=== PATIENT | male | born 1980 | race Caucasian/White ===

== ENCOUNTER 2019-11-19 18:01 | Inpatient (IN) | payer SELFPAY ==
[2019-11-19] VITALS (41 sets, daily range): BP systolic 117–153; BP diastolic 78–114; PULSE 90–195; RESP 6–25; TEMP 36.7–36.8; O2SAT 91–99; BMI 19.3
--- NOTE | 2019-11-19 18:07 | CTR_ITS ---
PROCEDURE INFORMATION: Exam: CT Cervical Spine Without Contrast Exam date and time: 11/19/2019 6:09 PM Age: 39 years old Clinical indication: Injury or trauma; Initial encounter; Blunt trauma; Patient HX: Syncope with fall this p. M. PT C/O of RT sided headache with imbalance while standing; Additional info: Pain TECHNIQUE: Imaging protocol: Computed tomography images of the cervical spine without contrast. Total DLP: 362.03 mGy-cm Radiation optimization: All CT scans at this facility use at least one of these dose optimization techniques: automated exposure control; mA and/or kV adjustment per patient size (includes targeted exams where dose is matched to clinical indication); or iterative reconstruction. COMPARISON: No relevant prior studies available. FINDINGS: Vertebrae: No acute fracture. Normal alignment. Discs/Spinal canal/Neural foramina: No disc herniations. No spinal canal stenosis. No neural foraminal narrowing. Soft tissues: Unremarkable. Lungs: Mild apical scarring right greater than left. Lung apices are otherwise unremarkable. CT/CT cervical spin wo con* [id number] IMPRESSION: No acute findings. Radiation Dose CTDIVOL = (mGy): DLP = 362.03 (mGy-cm)
--- NOTE | 2019-11-19 18:07 | CTR_ITS ---
PROCEDURE INFORMATION: Exam: CT Head Without Contrast Exam date and time: 11/19/2019 6:09 PM Age: 39 years old Clinical indication: Injury or trauma; Patient HX: Syncope with fall this p. M. PT C/O of RT sided headache with imbalance while standing; Additional info: Chapa/ams TECHNIQUE: Imaging protocol: Computed tomography of the head without contrast. Total DLP: 416.42 mGy-cm Radiation optimization: All CT scans at this facility use at least one of these dose optimization techniques: automated exposure control; mA and/or kV adjustment per patient size (includes targeted exams where dose is matched to clinical indication); or iterative reconstruction. COMPARISON: No relevant prior studies available. FINDINGS: Brain: There is no acute hemorrhage, edema or mass effect. No midline shift. Ventricles: Normal. No ventriculomegaly. Bones/joints: Unremarkable. No acute fracture. Sinuses: There is patchy mucosal thickening in the sinuses. No air-fluid levels. Mastoid air cells: Visualized mastoid air cells are well aerated. Soft tissues: There is a right parietal scalp hematoma. CT/CT head wo con* [id number] IMPRESSION: 1. There is a right parietal scalp hematoma. 2. No acute intracranial abnormality. Radiation Dose CTDIVOL = (mGy): DLP = 416.42 (mGy-cm)
--- NOTE | 2019-11-19 18:08 | ECG_ITS ---
Measurements Intervals [place] Rate: 133 P: 80 WA: 159 QRS: 92 QRSD: 84 T: 53 QT: 292 QTc: 435 SINUS TACHYCARDIA BORDERLINE RIGHT AXIS DEVIATION [QRS AXIS > 90] POSSIBLE RIGHT VENTRICULAR CONDUCTION DELAY [RSR (QR) IN V1/V2] ABNORMAL RHYTHM ECG INTERPRETATION BASED ON A DEFAULT AGE OF 40 YEARS No previous ECG available for comparison Electronically Signed On 11-19-2019 18:35:49 CDT by Maureen Gagnon M.D. [id number]
--- NOTE | 2019-11-19 18:11 | W.ED.GENADLT ---
HPI - General Adult General: Chief complaint: General Medical Stated complaint: ETOH, FALL, W/D Time Seen by Provider: 11/19/19 18:02 History of Present Illness: HPI narrative: Dl is a 39-year-old male who comes in with report of fall. He was witnessed falling backward while trying to walk upstairs. Patient does not believe he passed out but likely just stumbled. Patient is currently withdrawing from alcohol. He states he drinks daily but he is not had anything to drink in the past 3 to 4 days. He denies any pain other than a headache. Patient states he does not not want to drink any longer and would be okay with something to help relax him. Other than that he denies any other complaints or injuries. EMS notes the patient was tachycardic in the 160s prior to arrival. Associated symptoms: Reports diaphoresis and headache(s); Deny chest pain, confusion, dyspnea, malaise, nausea, rash, palpitations, syncope or vomiting Review of Systems General: Reports: other (negative unless marked) Const: Reports: diaphoresis; Denies: fever, chills, body aches, fatigue or malaise Eyes: Denies: change in vision or blurry vision ENMT: Denies: throat pain, painful swallowing, hoarseness, ear pain, ear discharge, Change in hearing or nasal discharge Card: Denies: chest pain, palpitations, irregular heart rhythm, syncope, pre-syncope, shortness of breath on exertion or shortness of breath when lying down Resp: Denies: shortness of breath, productive cough, non-productive cough, wheezing, coughing up blood or chest congestion GI: Denies: abdominal pain, nausea, vomiting, vomiting blood, coffee grounds in vomit, diarrhea, constipation, cramping, blood in stool or black tarry stool : Denies: flank pain, difficulty urinating, painful urination, urinary frequency, urinary urgency, decreased urine ouput, urinary incontinence or blood in urine Musc: Denies: neck pain, back pain, extremity pain, extremity swelling, joint pain, joint swelling, joint warmth or joint stiffness Skin/Breast: Denies: rash, skin tenderness or yellow skin Neuro: Reports: headache; Denies: numbness in extremities, weakness in extremities, changes in sensation, lack of coordination, difficulty walking, dizziness, vertigo or confusion Endo: Denies: excessive thirst, tired all the time, cold intolerance, excessive sweating, flushing or hot flashes Osiel/Lymph: Denies: easy bruising, easy bleeding, petechiae or enlarged lymph nodes All/Imm: Denies: hives, throat swelling, tongue swelling, facial swelling or acute wheezing PFSH ED PFSH: Medical History Alcoholism Mitral valve prolapse Spontaneous pneumothorax Social History Smoking and tobacco status: current some day smoker Physical Exam Const: COMMON NORMALS: no apparent distress, oriented x3, no limitations, healthy appearing and well nourished EXAM LIMITATIONS: no altered mental status GENERAL APPEARANCE: cooperative, well kempt and well developed ORIENTATION/CONSCIOUSNESS: Yes awake HENMT: COMMON NORMALS: normocephalic, head/scalp atraumatic, hearing grossly normal bilaterally, external ears normal, EAC's normal, external nose normal and moist oral mucous membranes HEAD & SCALP: normal to inspection, normocephalic and atraumatic FACE & SINUS: normal facial exam and face symmetric NOSE: external nose normal and nares normal EXTERNAL EAR: Yes external ears normal EXTERNAL AUDITORY CANAL: EAC's normal MOUTH: oral and palatal mucosa normal and tongue normal Eye: COMMON NORMALS: PERRL, EOMs intact bilaterally, conjunctivae normal and no scleral icterus GENERAL EYE: normal appearance of both eyes and normal light reflex CONJUNCTIVA: Yes conjunctivae normal SCLERA: sclerae normal CORNEA: Yes corneas normal PUPIL: Yes PERRL DIRECT OPHTHALMOSCOPY: Yes normal light reflex Neck/C-Spine: COMMON NORMALS: full ROM, no lymphadenopathy, supple, no meningeal signs and no JVD GENERAL: Yes normal visual inspection and Yes trachea midline CERVICAL SPINE: Yes cervical ROM normal Chest: COMMONS NORMALS: inspection of chest normal and palpation of chest normal Resp: COMMON NORMALS: normal respiratory effort, no retractions, no use of accessory muscles and clear to auscultation bilaterally EFFORT & INSPECTION: Yes able to speak in complete sentences AUSCULTATION: clear to auscultation bilaterally Cardio: COMMON NORMALS: no JVD, regular rhythm, S1 normal heart sound, S2 normal heart sound, no gallops, no clicks, no murmurs and no rub JUGULAR VENOUS DISTENTION: no JVD RATE: tachycardic RHYTHM: regular rhythm HEART SOUNDS: S1 normal and S2 normal GI: COMMON NORMALS: soft to palpation, non-tender, no hepatosplenomegaly and no masses INSPECTION: Yes normal to inspection PALPATION: Yes soft and Yes no hepatosplenomegaly : COMMON NORMALS: Yes no CVA tenderness BLADDER/KIDNEY EXAM: Yes no CVA tenderness Back/Pelvis: COMMON NORMALS: no CVA tenderness, thoracic and lumbar spine normal to inspection, no thoracic nor lumbar tenderness and thoraco-lumbar ROM normal Extremity: COMMON NORMALS: normal to inspection, full ROM, normal capillary refill, no joint enlargement, no clubbing, cyanosis or edema and no calf tenderness Neuro: COMMON NORMALS: oriented x3, CN's II-XII intact bilaterally, moves all extremities, no focal motor deficits and no sensory deficits noted MENINGEAL SIGNS: Yes no meningeal signs Psych: COMMON NORMALS: mental status grossly normal, thought process normal, cooperative, affect normal, speech normal and activity/motor behavior normal APPEARANCE: Yes well kempt SPEECH: Yes normal speech THOUGHT PROCESS: normal thought process Skin: COMMON NORMALS: no rashes or lesions noted, skin turgor normal, no jaundice, no petechiae and no mottling GENERAL SKIN EXAM: no rashes or lesions noted and turgor normal Course ED course: 1829 -patient is refusing chest x-ray. I have had a discussion with him about the importance of this but despite this he states is not hurting in his chest and refuses the x-ray. Vital Signs: Vital signs: Vital Signs Temperature 98.3 F 11/19/19 18:02 Pulse Rate 121 H 11/19/19 19:05 Respiratory Rate 22 H 11/19/19 19:05 Blood Pressure 145/99 11/19/19 19:05 Pulse Oximetry 98 11/19/19 19:05 MDM - General Adult MDM Narrative: Medical decision making narrative: Arrival -Dl is a 39-year-old male who comes in after a fall hitting his head. It is unclear whether he is just amnestic to the event from a concussion with loss of consciousness or he had a seizure. No seizure activity was described by bystanders. Patient states he is never had a seizure before when he tried to detox. He is mildly tremulous. He denies any hallucinations. Patient states that he would like to go home but would like his symptoms to be better before he is discharged. Differential is long including syncope, delirium tremens, seizure disorder among many others. We will move forward with work-up for these and other possibilities on his differential. Admission - the patient appears to have alcohol withdrawal seizures, delirium tremens. The case was reviewed in full with Dr. Levy, he agrees to admission. Lab Data: Attestation: I reviewed the patient's lab results. Labs: Lab Results 11/19/19 11/19/19 11/19/19 Range/Units 17:50 17:50 17:50 WBC 9.8 (4.0-10.0) 10^3/ uL RBC 5.30 (4.1-5.3) 10^6/u L Hgb 16.2 (11.7-16.6) g/dL Hct 49.9 (42.0-52.0) % MCV 94.2 H (80-94) fL MCH 30.6 (28.0-34.0) pg MCHC 32.5 (30.0-36.0) g/dL RDW 12.4 (12.1-15.1) % Plt Count 143 (130-400) 10^3/c mm MPV 10.0 (7.4-10.4) fL Neut % (Auto) 45.2 % Lymph % (Auto) 42.1 % [place] % (Auto) 10.2 % Eos % (Auto) 1.7 % Baso % (Auto) 0.5 % Neut # (Auto) 4.4 (1.8-7.7) 10^3/u L Lymph # (Auto) 4.1 (0.8-4.8) 10^3/u L [place] # (Auto) 1.0 H (0.2-0.9) 10^3/u L Eos # (Auto) 0.2 (0.0-0.8) 10^3/u L Baso # (Auto) 0.1 (0.0-0.1) 10^3/u L Nucleated RBC % (a uto) 0 % Nucleated RBCs # 0.0 /100WBC PT 13.60 H (10.5-13.3) SECO NDS INR 1.01 (0.8-1.2) Sodium 135 L (136-145) mmol/L Potassium 3.3 L (3.5-5.1) mmol/L Chloride 88 L (98-107) mmol/L Carbon Dioxide 10 L (22-29) mmol/L Anion Gap 40.3 H (5-19) BUN 15 (6-20) mg/dL Creatinine 1.6 H (0.7-1.2) mg/dL GFR Calculation 48.9 L (90-130) mL/min Glucose 187 H (65-115) mg/dL Calculated Osmolal ity 281 L (285-295) mOsm/k g Lactic Acid (0.5-2.2) mmol/L Lactic Acid (Sepsi s) (0.5-2.2) mmol/L Calcium 10.0 (8.5-10.5) mg/dL Total Bilirubin 0.7 (0.15-1.2) mg/dL AST 175 H (0-40) U/L ALT 130 H (0-41) U/L Alkaline Phosphata se 115 (40-130) IU/L Creatine Kinase 607 H* (39-308) U/L Troponin T Baselin e (0-15) ng/mL Total Protein 8.9 H (6.6-8.7) g/dL Albumin 5.2 (3.5-5.2) g/dL Globulin 3.7 (1.3-4.6) g/dL TSH 7.95 H (0.27-4.20) uIU/ mL Urine Opiates Scre en (Negative) ng/mL Ur Barbiturates Sc reen (Negative) ng/mL Ur Phencyclidine S crn (Negative) ng/mL Ur Amphetamines Sc reen (Negative) ng/mL U Benzodiazepines Scrn (Negative) ng/mL Urine Cocaine Scre en (Negative) ng/mL U Marijuana (THC) Screen (Negative) ng/mL Ethyl Alcohol < 10 (0-10) mg/dL 11/19/19 11/19/19 11/19/19 Range/Units 17:50 18:18 19:02 WBC (4.0-10.0) 10^3/ uL RBC (4.1-5.3) 10^6/u L Hgb (11.7-16.6) g/dL Hct (42.0-52.0) % MCV (80-94) fL MCH (28.0-34.0) pg MCHC (30.0-36.0) g/dL RDW (12.1-15.1) % Plt Count (130-400) 10^3/c mm MPV (7.4-10.4) fL Neut % (Auto) % Lymph % (Auto) % [place] % (Auto) % Eos % (Auto) % Baso % (Auto) % Neut # (Auto) (1.8-7.7) 10^3/u L Lymph # (Auto) (0.8-4.8) 10^3/u L [place] # (Auto) (0.2-0.9) 10^3/u L Eos # (Auto) (0.0-0.8) 10^3/u L Baso # (Auto) (0.0-0.1) 10^3/u L Nucleated RBC % (a uto) % Nucleated RBCs # /100WBC PT (10.5-13.3) SECO NDS INR (0.8-1.2) Sodium (136-145) mmol/L Potassium (3.5-5.1) mmol/L Chloride (98-107) mmol/L Carbon Dioxide (22-29) mmol/L Anion Gap (5-19) BUN (6-20) mg/dL Creatinine (0.7-1.2) mg/dL GFR Calculation (90-130) mL/min Glucose (65-115) mg/dL Calculated Osmolal ity (285-295) mOsm/k g Lactic Acid 10.5 H* (0.5-2.2) mmol/L Lactic Acid (Sepsi s) (0.5-2.2) mmol/L Calcium (8.5-10.5) mg/dL Total Bilirubin (0.15-1.2) mg/dL AST (0-40) U/L ALT (0-41) U/L Alkaline Phosphata se (40-130) IU/L Creatine Kinase (39-308) U/L Troponin T Baselin e 10 (0-15) ng/mL Total Protein (6.6-8.7) g/dL Albumin (3.5-5.2) g/dL Globulin (1.3-4.6) g/dL TSH (0.27-4.20) uIU/ mL Urine Opiates Scre en Negative (Negative) ng/mL Ur Barbiturates Sc reen Negative (Negative) ng/mL Ur Phencyclidine S crn Negative (Negative) ng/mL Ur Amphetamines Sc reen Negative (Negative) ng/mL U Benzodiazepines Scrn Negative (Negative) ng/mL Urine Cocaine Scre en Negative (Negative) ng/mL U Marijuana (THC) Screen Negative (Negative) ng/mL Ethyl Alcohol (0-10) mg/dL 11/19/19 Range/Units 19:38 WBC (4.0-10.0) 10^3/ uL RBC (4.1-5.3) 10^6/u L Hgb (11.7-16.6) g/dL Hct (42.0-52.0) % MCV (80-94) fL MCH (28.0-34.0) pg MCHC (30.0-36.0) g/dL RDW (12.1-15.1) % Plt Count (130-400) 10^3/c mm MPV (7.4-10.4) fL Neut % (Auto) % Lymph % (Auto) % [place] % (Auto) % Eos % (Auto) % Baso % (Auto) % Neut # (Auto) (1.8-7.7) 10^3/u L Lymph # (Auto) (0.8-4.8) 10^3/u L [place] # (Auto) (0.2-0.9) 10^3/u L Eos # (Auto) (0.0-0.8) 10^3/u L Baso # (Auto) (0.0-0.1) 10^3/u L Nucleated RBC % (a uto) % Nucleated RBCs # /100WBC PT (10.5-13.3) SECO NDS INR (0.8-1.2) Sodium (136-145) mmol/L Potassium (3.5-5.1) mmol/L Chloride (98-107) mmol/L Carbon Dioxide (22-29) mmol/L Anion Gap (5-19) BUN (6-20) mg/dL Creatinine (0.7-1.2) mg/dL GFR Calculation (90-130) mL/min Glucose (65-115) mg/dL Calculated Osmolal ity (285-295) mOsm/k g Lactic Acid (0.5-2.2) mmol/L Lactic Acid (Sepsi s) 1.9 (0.5-2.2) mmol/L Calcium (8.5-10.5) mg/dL Total Bilirubin (0.15-1.2) mg/dL AST (0-40) U/L ALT (0-41) U/L Alkaline Phosphata se (40-130) IU/L Creatine Kinase (39-308) U/L Troponin T Baselin e (0-15) ng/mL Total Protein (6.6-8.7) g/dL Albumin (3.5-5.2) g/dL Globulin (1.3-4.6) g/dL TSH (0.27-4.20) uIU/ mL Urine Opiates Scre en (Negative) ng/mL Ur Barbiturates Sc reen (Negative) ng/mL Ur Phencyclidine S crn (Negative) ng/mL Ur Amphetamines Sc reen (Negative) ng/mL U Benzodiazepines Scrn (Negative) ng/mL Urine Cocaine Scre en (Negative) ng/mL U Marijuana (THC) Screen (Negative) ng/mL Ethyl Alcohol (0-10) mg/dL Imaging Data^: CT Head: Radiologist's impression: [place] [address] CT Scan Report Signed Patient: Dl Lyman Unit #: [id number] : 1980 Age/Sex: 39 / M ADM Date: 11/19/19 Loc: ER Room/Bed: Attending Dr: Ordering Provider/Ordering MD: Carol Felix DO Date of Service: 11/19/19 Procedure(s): CT head wo con* [id number] Accession Number(s): [id number] Report Number: [id number] PROCEDURE INFORMATION: Exam: CT Head Without Contrast Exam date and time: 11/19/2019 6:09 PM Age: 39 years old Clinical indication: Injury or trauma; Patient HX: Syncope with fall this p. M. PT C/O of RT sided headache with imbalance while standing; Additional info: Chapa/ams TECHNIQUE: Imaging protocol: Computed tomography of the head without contrast. Total DLP: 416.42 mGy-cm Radiation optimization: All CT scans at this facility use at least one of these dose optimization techniques: automated exposure control; mA and/or kV adjustment per patient size (includes targeted exams where dose is matched to clinical indication); or iterative reconstruction. COMPARISON: No relevant prior studies available. FINDINGS: Brain: There is no acute hemorrhage, edema or mass effect. No midline shift. Ventricles: Normal. No ventriculomegaly. Bones/joints: Unremarkable. No acute fracture. Sinuses: There is patchy mucosal thickening in the sinuses. No air-fluid levels. Mastoid air cells: Visualized mastoid air cells are well aerated. Soft tissues: There is a right parietal scalp hematoma. CT/CT head wo con* [id number] IMPRESSION: 1. There is a right parietal scalp hematoma. 2. No acute intracranial abnormality. Radiation Dose CTDIVOL = (mGy): DLP = 416.42 (mGy-cm) Dictated By: Erin Retana Signed By: Erin Retana Signed Date/Time: 11/19/191913 DD/ 12 CT Cervical Spine: Radiologist's impression: [place] [address] CT Scan Report Signed Patient: Dl Lyman Unit #: [id number] : 1980 Age/Sex: 39 / M ADM Date: 11/19/19 Loc: ER Room/Bed: Attending Dr: Ordering Provider/Ordering MD: Carol Felix DO Date of Service: 11/19/19 Procedure(s): CT cervical spin wo con* [id number] Accession Number(s): [id number] Report Number: [id number] PROCEDURE INFORMATION: Exam: CT Cervical Spine Without Contrast Exam date and time: 11/19/2019 6:09 PM Age: 39 years old Clinical indication: Injury or trauma; Initial encounter; Blunt trauma; Patient HX: Syncope with fall this p. M. PT C/O of RT sided headache with imbalance while standing; Additional info: Pain TECHNIQUE: Imaging protocol: Computed tomography images of the cervical spine without contrast. Total DLP: 362.03 mGy-cm Radiation optimization: All CT scans at this facility use at least one of these dose optimization techniques: automated exposure control; mA and/or kV adjustment per patient size (includes targeted exams where dose is matched to clinical indication); or iterative reconstruction. COMPARISON: No relevant prior studies available. FINDINGS: Vertebrae: No acute fracture. Normal alignment. Discs/Spinal canal/Neural foramina: No disc herniations. No spinal canal stenosis. No neural foraminal narrowing. Soft tissues: Unremarkable. Lungs: Mild apical scarring right greater than left. Lung apices are otherwise unremarkable. CT/CT cervical spin wo con* [id number] IMPRESSION: No acute findings. Radiation Dose CTDIVOL = (mGy): DLP = 362.03 (mGy-cm) Dictated By: Erin Retana Signed By: Erin Retana Signed Date/Time: 11/19/191915 DD/ 14 EKG Data^: EKG 1: Attestation: I personally reviewed and interpreted this EKG as follows: EKG interpretation date: 11/19/19 EKG interpretation time: 18:18 Interpretation: Sinus tachycardia at 133, incomplete right bundle branch block, nonspecific ST and T wave changes. Computer generated interpretation: Cervical Spine CT 11/19/19 18:07 IMPRESSION: No acute findings. Radiation Dose CTDIVOL = (mGy): DLP = 362.03 (mGy-cm) Head CT 11/19/19 18:07 IMPRESSION: 1. There is a right parietal scalp hematoma. 2. No acute intracranial abnormality. 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
[2019-11-19] MEDS: ondansetron 2 mg/ML SDV 2 mL 4 MG IVP (18:20)
[2019-11-19] MEDS: LORazepam 2 mg/mL INJ 1 mL 1 MG IVP ×2 (18:20→19:19)
[2019-11-19] MEDS: sodium chloride 0.9% 1,000 ML 999 ML IV ×2 (18:20→19:19)
[2019-11-19 18:27] LABS: Basophils # 0.1 10^3/uL (0.0-0.1); Basophils % 0.5 %; Eosinophils # 0.2 10^3/uL (0.0-0.8); Eosinophils % 1.7 %; Hematocrit 49.9 % (42.0-52.0); Hemoglobin 16.2 g/dL (11.7-16.6); Lymphocytes # 4.1 10^3/uL (0.8-4.8); Lymphocytes % 42.1 %; Mean Corpuscular HGB Conc 32.5 g/dL (30.0-36.0); Mean Corpuscular Hemoglobin 30.6 pg (28.0-34.0); Mean Corpuscular Volume 94.2 fL (80-94); Monocytes % 10.2 %; Neutrophils # 4.4 10^3/uL (1.8-7.7); Neutrophils % 45.2 %; Nucleated Red Blood Cells % 0 %; Platelet Count 143 10^3/cmm (130-400); Red Cell Distribution Width 12.4 % (12.1-15.1); White Blood Count 9.8 10^3/uL (4.0-10.0)
[2019-11-19 18:41] LABS: INR 1.01 (0.8-1.2)
[2019-11-19 18:57] LABS: Troponin(5th) Baseline 10 ng/mL (0-15)
[2019-11-19 19:05] LABS: Alanine Aminotransferase 130 U/L (0-41); Albumin Level 5.2 g/dL (3.5-5.2); Alkaline Phosphatase 115 IU/L (40-130); Anion Gap 40.3 (5-19); Aspartate Amino Transferase 175 U/L (0-40); Blood Urea Nitrogen 15 mg/dL (6-20); Carbon Dioxide 10 mmol/L (22-29); Chloride 88 mmol/L (98-107); Globulin 3.7 g/dL (1.3-4.6); Glomerular Filtration Rate 48.9 mL/min (90-130); Glucose 187 mg/dL (65-115); Osmolality Calculated 281 mOsm/kg (285-295); Potassium 3.3 mmol/L (3.5-5.1); Sodium 135 mmol/L (136-145); Thyroid Stimulating Hormone 7.95 uIU/mL (0.27-4.20); Total Bilirubin 0.7 mg/dL (0.15-1.2); Total Protein 8.9 g/dL (6.6-8.7)
[2019-11-19 19:06] LABS: Lactic Sepsis W/Reflex 10.5 mmol/L (0.5-2.2)
[2019-11-19 19:09] LABS: Alcohol Level < 10 mg/dL (0-10)
[2019-11-19 19:10] LABS: Creatine Phosphokinase 607 U/L (39-308)
[2019-11-19 19:22] LABS: Reflex Lactate Order REFLEX LACTIC ORDERD
[2019-11-19 20:05] LABS: Amphetamines Screen Urine Negative (Negative); Barbiturates Screen Urine Negative (Negative); Benzodiazepines Screen Urine Negative (Negative); Cocaine Screen Urine Negative (Negative); Opiate Screen Urine Negative (Negative); PCP Screen Urine Negative (Negative); THC Screen Urine Negative (Negative)
[2019-11-19 20:05] LABS: Lactic Acid level (Lactate) 1.9 mmol/L (0.5-2.2)
--- NOTE | 2019-11-19 20:08 | ECG_ITS ---
Measurements Intervals [place] Rate: 102 P: 76 DE: 165 QRS: 87 QRSD: 86 T: 62 QT: 348 QTc: 454 SINUS TACHYCARDIA ABNORMAL RHYTHM ECG Compared to ECG 11/19/2019 18:18:35 No significant changes Electronically Signed On 11-20-2019 7:49:04 CDT by Dimitry Lindsay M.D. [id number]
[2019-11-19] MEDS: folic acid 1 MG, multivitamin inj 10 ML, thiamine 100 MG in sodium chloride 0.9% 1,000 ML 252.8 MG IV (20:25)
[2019-11-19] MEDS: potassium chloride oral liq 20 mEq/15 mL UDC 40 MEQ PO (20:26)
[2019-11-19 20:29] LABS: Magnesium 2.8 mg/dL (1.7-2.3)
[2019-11-19 20:32] LABS: Troponin 5 2HR 18.32 ng/mL (0-15); Troponin 5 2HR Delta 8.32 ABS# (0-10)
[2019-11-19 20:38] LABS: Bilirubin Urine Neg (NEGATIVE); Blood Urine 2+ (Negative); Glucose Urine UA Norm (Normal); Ketones Urine 1+ (Negative); Leukocyte Esterase Urine Negative (Negative); Nitrate Urine Negative (Negative); Protein Urine Neg (Negative); RBC Urine 0-4 /hpf (0-2); Squamous Epithelial Cell Urine 0-4 (0-5); Urine Appearance Clear (CLEAR); Urine Color Yellow (Yellow); Urobilinogen Urine Norm (Negative); WBC Urine 0-4 /hpf (0-5); pH Urine 5 (5-7)
--- NOTE | 2019-11-19 20:38 | PM.HP ---
Providers/Chief Complaint Admitting Physician: Maureen Levy MD Chief Complaint: ETOH, FALL, W/D History of Present Illness Dl Lyman is a 39 year old male who endorses history of polysubstance abuse, heroin abuse, active smoker, alcohol abuse came in after experiencing worsening symptom of alcohol withdrawal. Patient is stating that he drinks 15 beers every day. [facility] [employer] [employer] until layover, he managed to work while drinking 13 to 14 cans of beer every day. He decided to cut back on his beer. His last drink was 4 days ago, patient is stating that he quit heroin cold and he is going to do the same for his alcohol addiction. He started experiencing nausea and vomiting 3 days ago, he was extremely tremulous, he confined himself to his bed hoping he will improve, gradually his symptoms got worse, he was not able to sleep for last 72 hours, this morning when he got up, he went out in his porch and had 1 syncopal event, kids in the yard called 911, when he woke up he was extremely confused and had no recall of events. He thinks he caught up on his sleep. Patient is endorsing severe alcohol withdrawals in the past requiring intubations. He smoking 1 pack/day. His last proper meal was about 4 days ago. Diagnostics in ER revealed active withdrawal symptoms, sinus tachycardia, hypertensive, patient saturating well on room air, CIWA score greater than 12 Hypokalemia, abnormal TSH, lactic acid 10.5, metabolic acidosis, CK 607, free T4 normal Review of Systems Const: Reports: chills, body aches, change in appetite, fatigue, malaise, diaphoresis and change in sleep pattern; Denies: fever Eyes: Reports: eye redness and dry eyes; Denies: change in vision, eye discomfort or eye discharge ENMT: Denies: throat pain or painful swallowing Card: Denies: chest pain or edema Resp: Denies: shortness of breath or productive cough GI: Reports: abdominal pain; Denies: nausea : Denies: flank pain Musc: Denies: neck pain Skin/Breast: Denies: rash or itching Neuro: Reports: headache, seizure-like activity and involuntary movements Psych: Reports: anxiety, sleeping less, change in appetite, paranoia and tactile hallucinations; Denies: suicidal ideation or homicidal ideation Endo: Denies: excessive urination Osiel/Lymph: Denies: easy bruising All/Imm: Denies: hives Medications/Allergies Home Medications Medication Instructions Recorded Confirmed Last Taken Type No Known Home Medications 11/19/19 11/19/19 Unknown History Allergies Allergy/AdvReac Type Severity Reaction Status Date / Time No Known Allergies Allergy Verified 11/19/19 18:09 PFSH Acute PFSH: Medical History Alcoholism Heroin addiction Mitral valve prolapse Spontaneous pneumothorax Surgical History H/O chest tube placement Spontaneous pneumothorax Family History (Updated 11/19/19 @ 20:47 by Maureen Levy MD) Denies family history of Diabetes Clotting disorder Dementia Chronic kidney disease (CKD) Social History (Updated 11/19/19 @ 20:48 by Maureen Levy MD) Smoking and tobacco status: heavy tobacco smoker cigarettes [ Other cigarette details: 1 pack/day for last 20 years ] Alcohol intake: current Alcohol type: beer Alcohol use comment: 15 cans every day Substance/Drug Use: former Date of last use: Heroin addiction in the past Household members: family Housing: House Marital status: Vitals/I&O/Wt Last Vital Signs Temp 98.3 F 11/19/19 18:02 Pulse 121 H 11/19/19 19:05 Resp 22 H 11/19/19 19:05 BP 145/99 11/19/19 19:05 Pulse Ox 98 11/19/19 19:05 11/19/19 11/19/19 11/19/19 06:59 14:59 22:59 Intake Total 982.35 / 982.35 Balance 982.35 / 982.35 Weight last 48 hrs Weight 61.235 kg Physical Exam Narrative: EXAM NARRATIVE: Young male very tremulous undergoing withdrawal from alcohol Sinus tachycardia heart rate 120 Hypertensive systolic blood pressure 160?, diastolic 110 CIWA score 12 Unkempt appearance, poor hygiene, inappropriate grooming, foul-smelling clothing Dehydrated appearance S1, S2 sinus tachycardia Lungs clear to auscultation Abdomen soft nontender nondistended, chest tube surgical scars right axillary area Patient is very irritable Tremulous, coarse tremors Hyperemic conjunctivo-bilateral without active discharge or eye pain, pupils are sluggish to respond to light bilaterally, dilated Data : 11/19/19 17:50 11/19/19 17:50 A&P Assessment and plan (1) Alcohol withdrawal syndrome: Status: Acute Qualifiers: Complication of substance-induced condition: with perceptual disturbance Qualified Code(s): F10.232 - Alcohol dependence with withdrawal with perceptual disturbance (2) Alcoholism: Status: Acute (3) Syncope: Status: Acute Additional A&P Information Syncopal event most likely due to seizure from alcohol withdrawal Alcohol level nondetectable, CT cervical spine did not show acute findings, right parietal scalp hematoma, no active bleeding Patient is able to protect airways, EKG shows sinus tachycardia, Patient has a history of mitral valve prolapse and spontaneous pneumothorax Patient has refused chest x-ray, however currently saturating well on room air no active respiratory distress bilateral breath sounds present Alcohol withdrawal Admit to ICU, high risk for intubation CIWA score greater than 12 Thiamine, folic acid Metabolic acidosis due to lactic acidemia This seems secondary to extreme dehydration due to recurrent emesis I would also keep seizures in my differentials because of recent syncopal event, patient has not been able to sleep well in last 72 hours Continue fluids after banana bag No active confabulation or nystagmus noted Hypokalemia due to emesis: Repleted Subclinical hypothyroidism: Normal T4 no active symptom Acute kidney injury secondary to dehydration: Anticipating improvement with fluid resuscitation Mild abnormal creatinine kinase, urine color is not dark, I do not think he is suffering from rhabdomyolysis this could be very well secondary to alcohol withdrawal Polysubstance abuse I will check HIV and hepatitis panel Full code N.p.o. at the moment as he will be considered high risk for intubation DVT prophylaxis: Heparin Attestations Medical Necessity Statement*: High risk for intubation, alcohol withdrawal, currently needs ICU monitoring, anticipating stay to cross more than 2 midnights Time Spent in Patient Care: 40 Coding Level of Care Code Acute Rolling Attendant for Chg Fwd Diagnoses Alcohol withdrawal syndrome F10.232 Complication of substance-induced condition: with perceptual disturbance Alcoholism F10.20 Syncope R55
[2019-11-19 20:39] LABS: Add Urine Culture? No; Bacteria Urine TRACE
[2019-11-19 21:33] LABS: Magnesium 2.7 mg/dL (1.7-2.3)
[2019-11-19] MEDS: chlordiazePOXIDE 25 mg Capsule 50 MG PO (22:13)
[2019-11-19] MEDS: LORazepam 2 mg/mL INJ 1 mL IVP (22:17)
[2019-11-19] MEDS: heparin 5,000 unit/mL INJ 1 mL 5000 UNIT SUBCUT (22:17)
[2019-11-19] MEDS: acetaminophen 325 mg Tablet 650 MG PO (22:18)
[2019-11-19] MEDS: D5-NS 0.45% + KCL 20 mEq 20 MEQ/1,000 ML BAG 150 MEQ IV (22:18)
[2019-11-20] VITALS (27 sets, daily range): BP systolic 106–161; BP diastolic 70–91; PULSE 0–105; RESP 4–23; TEMP 36.7–37.1; O2SAT 91–100
--- NOTE | 2019-11-20 00:08 | ECG_ITS ---
Measurements Intervals [place] Rate: 85 P: 78 TN: 183 QRS: 86 QRSD: 91 T: 56 QT: 380 QTc: 453 SINUS RHYTHM POSSIBLE RIGHT VENTRICULAR CONDUCTION DELAY [RSR (QR) IN V1/V2] Compared to ECG 11/19/2019 18:18:35 Sinus tachycardia no longer present Electronically Signed On 11-20-2019 7:49:40 CDT by Dimitry Lindsay M.D. [email or web address]
[2019-11-20] MEDS: LORazepam 2 mg/mL INJ 1 mL IVP (03:00)
[2019-11-20 04:57] LABS: Basophils % 0.4 %; Eosinophils # 0.2 10^3/uL (0.0-0.8); Eosinophils % 3.9 %; Hematocrit 42.4 % (42.0-52.0); Hemoglobin 14.2 g/dL (11.7-16.6); Lymphocytes # 1.3 10^3/uL (0.8-4.8); Lymphocytes % 28.4 %; Mean Corpuscular HGB Conc 33.5 g/dL (30.0-36.0); Mean Corpuscular Hemoglobin 31.2 pg (28.0-34.0); Mean Corpuscular Volume 93.2 fL (80-94); Mean Platelet Volume 10.3 fL (7.4-10.4); Monocytes # 0.5 10^3/uL (0.2-0.9); Monocytes % 10.1 %; Neutrophils # 2.6 10^3/uL (1.8-7.7); Nucleated Red Blood Cells % 0 %; Platelet Count 108 10^3/cmm (130-400); Red Blood Count 4.55 10^6/uL (4.1-5.3); Red Cell Distribution Width 12.5 % (12.1-15.1); White Blood Count 4.6 10^3/uL (4.0-10.0)
[2019-11-20 05:26] LABS: Alanine Aminotransferase 93 U/L (0-41); Albumin Level 3.8 g/dL (3.5-5.2); Alkaline Phosphatase 72 IU/L (40-130); Anion Gap 15.3 (5-19); Aspartate Amino Transferase 148 U/L (0-40); Blood Urea Nitrogen 7 mg/dL (6-20); Calcium 8.2 mg/dL (8.5-10.5); Carbon Dioxide 22 mmol/L (22-29); Chloride 102 mmol/L (98-107); Creatinine Clr Calc Pharmacy 108.5537; Globulin 2.7 g/dL (1.3-4.6); Glucose 100 mg/dL (65-115); Osmolality Calculated 278 mOsm/kg (285-295); Potassium 3.3 mmol/L (3.5-5.1); Sodium 136 mmol/L (136-145); Total Bilirubin 0.6 mg/dL (0.15-1.2); Total Protein 6.5 g/dL (6.6-8.7)
[2019-11-20] MEDS: D5-NS 0.45% + KCL 20 mEq 20 MEQ/1,000 ML BAG 150 MEQ IV ×3 (06:09→18:10)
[2019-11-20] MEDS: heparin 5,000 unit/mL INJ 1 mL 5000 UNIT SUBCUT ×3 (06:12→20:37)
--- NOTE | 2019-11-20 07:00 | XR_ITS ---
WS: [id number] CHEST XRAY TECHNIQUE: Portable chest. CLINICAL INFORMATION: History of pneumothorax COMPARISON: None. FINDINGS: Heart: Normal cardiac silhouette. Lungs: Hyperinflation. No acute pulmonary infiltrates. No focal pneumonia. Bones: Normal visualized bony structures. XR/XR chest 1V portable [id number] IMPRESSION: Hyperinflation. No acute chest findings.
[2019-11-20 07:12] LABS: Hepatitis B Surface Antigen. Non-Reactive (Nonreactive)
[2019-11-20 07:26] LABS: Hepatitis C Virus Antibody Non-Reactive (Nonreactive)
[2019-11-20] MEDS: thiamine 100 mg Tablet PO (08:21)
[2019-11-20] MEDS: multivitamin therapeutic Tablet 1 TAB PO (08:21)
[2019-11-20] MEDS: nicotine 21 mg Patch 1 PATCH TRANSDERMA (08:21)
[2019-11-20] MEDS: folic acid 1 mg Tablet PO (08:21)
--- NOTE | 2019-11-20 09:55 | PM.PN ---
Subjective Subjective: Interval history: History and physical was reviewed in detail. Patient reports he feels somewhat better than yesterday. He believes he can eat some. Still somewhat shaky. Last Ativan dose around 3 AM. Medications: Reviewed: Yes Vitals/I&O/Wt Last Vital Signs Temp 98.7 F 11/20/19 08:00 Pulse 97 11/20/19 08:42 Resp 23 H 11/20/19 08:00 BP 134/87 11/20/19 08:00 Pulse Ox 95 11/20/19 08:42 11/19/19 11/20/19 11/20/19 22:59 06:59 14:59 Intake Total 982.35 / 982.35 1000 / 1982.35 Output Total 1350 / 1350 0 / 1350 Balance -367.65 / -367.65 1000 / 632.35 Weight last 48 hrs Weight 61.235 kg Physical Exam Narrative: EXAM NARRATIVE: General exam demonstrates a white male, conversant, with slight tremor. Cardiovascular regular rate and rhythm without murmur Lungs faint expiratory wheeze Abdomen is soft with positive bowel sounds Extremities no cyanosis clubbing or edema Data : 11/20/19 04:15 11/20/19 04:15 A&P Assessment and plan (1) Alcohol withdrawal syndrome: He seems to be making some improvement. He denies any suicidal or homicidal ideation Continue [facility] protocol Continue multivitamin, thiamine Status: Acute Qualifiers: Complication of substance-induced condition: with perceptual disturbance Qualified Code(s): F10.232 - Alcohol dependence with withdrawal with perceptual disturbance (2) Alcoholism: Counseled Status: Acute (3) Syncope: Secondary to withdrawal. Cannot rule out seizure. Status: Acute Additional A&P Information Right scalp hematoma secondary to fall. No evidence of intracranial pathology Hypokalemia. Will supplement with potassium Acute kidney injury, resolved Transaminitis, thrombocytopenia. This is likely secondary to alcoholism, bone marrow suppression, alcoholic hepatitis Mild wheezing on exam. Likely secondary to tobacco use. Will use albuterol as needed. Patient has refused chest x-ray. No history of fever, significant cough Metabolic acidosis, secondary to alcoholism, resolved Mildly abnormal TSH. Free T4 is normal. Can be rechecked as an outpatient. Polysubstance use. Hepatitis panel negative. HIV ordered Tobacco dependency. Nicotine patch Full code Heparin for DVT prophylaxis May transfer out of ICU Attestations Medical Necessity Statement*: Needs continued hospital stay, for treatment of alcohol withdrawal. Coding Level of Care Code Acute Date Night Caregiver for Chg Fwd Diagnoses Alcohol withdrawal syndrome F10.232 Complication of substance-induced condition: with perceptual disturbance Alcoholism F10.20 Syncope R55
[2019-11-20 11:39] LABS: HIV 1 & 2 Antibody Non-Reactive (Non-Reactiv); HIV 1 & 2 Antigen Non-Reactive (Non-Reactiv)
--- NOTE | 2019-11-20 12:07 | PC.NURSE ---
transfer report called to JANAY Farley. Patient taken to med surg via wheelchair.
--- NOTE | 2019-11-20 15:53 | PC.NURSE ---
CIWA - patients states date is 11/20/2016. He states he is at [facility] because he quite drinking and had seizures. JANAY COOPER
[2019-11-20] MEDS: LORazepam 0.5 mg Tablet PO (18:10)
--- NOTE | 2019-11-20 18:11 | PC.NURSE ---
Rounding Note: Patient stated during rounding at 1525 that he has anxiety. He states he has anxiety about everything that he has to take care of once he is out of here and what he cant take care of right now. Called Dr. Tomas for order for something the help he gave order for po ativan. ALLISON, INSPECTOR AND CLIPPER
[2019-11-21] MEDS: D5-NS 0.45% + KCL 20 mEq 20 MEQ/1,000 ML BAG 150 MEQ IV (01:38)
[2019-11-21 04:00] VITALS: BP 128/85; PULSE 85; RESP 20; TEMP 36.5; O2SAT 97
[2019-11-21 05:05] LABS: T4 Total 5.2 mcg/dL (4.9-10.5)
[2019-11-21] MEDS: heparin 5,000 unit/mL INJ 1 mL 5000 UNIT SUBCUT (05:11)
[2019-11-21 05:35] LABS: Eosinophils # 0.3 10^3/uL (0.0-0.8); Eosinophils % 8.1 %; Hemoglobin 14.7 g/dL (11.7-16.6); Lymphocytes # 1.7 10^3/uL (0.8-4.8); Lymphocytes % 40.1 %; Mean Corpuscular HGB Conc 32.7 g/dL (30.0-36.0); Mean Corpuscular Hemoglobin 31.1 pg (28.0-34.0); Mean Corpuscular Volume 95.1 fL (80-94); Mean Platelet Volume 9.7 fL (7.4-10.4); Monocytes # 0.4 10^3/uL (0.2-0.9); Monocytes % 8.3 %; Neutrophils # 1.8 10^3/uL (1.8-7.7); Neutrophils % 42.5 %; Nucleated Red Blood Cells % 0 %; Platelet Count 117 10^3/cmm (130-400); Red Blood Count 4.73 10^6/uL (4.1-5.3); Red Cell Distribution Width 12.6 % (12.1-15.1); White Blood Count 4.2 10^3/uL (4.0-10.0)
[2019-11-21 05:56] LABS: Alanine Aminotransferase 104 U/L (0-41); Albumin Level 4.1 g/dL (3.5-5.2); Alkaline Phosphatase 77 IU/L (40-130); Anion Gap 17.3 (5-19); Aspartate Amino Transferase 131 U/L (0-40); Blood Urea Nitrogen 7 mg/dL (6-20); Calcium 9.3 mg/dL (8.5-10.5); Carbon Dioxide 22 mmol/L (22-29); Chloride 103 mmol/L (98-107); Glomerular Filtration Rate 108.8 mL/min (90-130); Glucose 106 mg/dL (65-115); Osmolality Calculated 282 mOsm/kg (285-295); Potassium 4.3 mmol/L (3.5-5.1); Sodium 138 mmol/L (136-145); Total Bilirubin 0.4 mg/dL (0.15-1.2); Total Protein 7.1 g/dL (6.6-8.7)
[2019-11-21 07:55] VITALS: BP 124/80; PULSE 64; RESP 18; TEMP 37; O2SAT 96
[2019-11-21] MEDS: nicotine 21 mg Patch 1 PATCH TRANSDERMA (08:43)
[2019-11-21] MEDS: thiamine 100 mg Tablet PO (08:43)
[2019-11-21] MEDS: multivitamin therapeutic Tablet 1 TAB PO (08:43)
[2019-11-21] MEDS: folic acid 1 mg Tablet PO (08:43)
[2019-11-21 09:45] VITALS: PULSE 98; RESP 16; O2SAT 98
[2019-11-21] MEDS: albuterol 8 gm MDI 2 PUFF INHALATION (09:45)
--- NOTE | 2019-11-21 10:05 | P.DS_ITS ---
Discharge Providers Date of Admission: 11/19/19 19:50 Date of Discharge: November 21, 2019 Attending Provider at Admission: Maureen Levy MD Attending Provider at Discharge: Jaspreet Tomas MD Diagnoses at Discharge Discharge Diagnosis (1) Alcohol withdrawal syndrome: Status: Acute Problem details: Resolved Qualifiers: Complication of substance-induced condition: with perceptual disturbance Qualified Code(s): F10.232 - Alcohol dependence with withdrawal with perceptual disturbance (2) Alcoholism: Status: Acute Problem details: Follow-up with behavioral health care. Discharge planning to given information on outpatient rehabilitation (3) Syncope: Status: Acute Problem details: No recurrence Reason for Visit Reason for Visit: Reason For Visit: ETOH, FALL, W/D Hospital Course Hospital Course: Dl presented to the hospital with alcohol withdrawal. He reported he had quit 2 to 4 days prior to coming in. He required IV Ativan, brief ICU stay, and hydration. With this he gradually improved and by November 20 he was ready to be discharged home. On admission he also had a syncopal episode, prompting evaluation with head CT and cervical spine CT which were both negative for any acute changes. He had no evidence of arrhythmias during his hospital stay. Liver function tests were elevated, and hepatitis screening negative. This was thought to be secondary to his alcoholism and this was improved at time of discharge. Potassium was slightly low and supplemented during his hospital stay. At discharge she had no evidence of active withdrawal. He was provided with outpatient rehabilitation material, and will be referred to a primary care provider as well as psychiatry. Physical Exam Narrative: EXAM NARRATIVE: General exam is no apparent distress Cardiovascular regular rate and rhythm without murmur Lungs clear Abdomen is soft with positive bowel sounds Extremities no cyanosis clubbing or edema. Discharge Data Data Completed and Pending: Completed Studies During Hospitalization Category Date Time Status CT cervical spin wo con* [id number] Urge nt Cat Scan 11/19/19 18:[address] head wo con* [id number] Urgent Cat Scan 11/19/19 18:07 Completed Pending at discharge Category Date Time Status XR chest 1V sobeida ble [id number] Routine Exams 11/20/19 07:00 Ordered Labs from last 24 hours 11/21/19 11/21/19 11/20/19 05:11 05:11 04:53 WBC 4.2 RBC 4.73 Hgb 14.7 Hct 45.0 MCV 95.1 H MCH 31.1 MCHC 32.7 RDW 12.6 Plt Count 117 L MPV 9.7 Neut % (Auto) 42.5 Lymph % (Auto) 40.1 Hamilton % (Auto) 8.3 Eos % (Auto) 8.1 Baso % (Auto) 1.0 Neut # (Auto) 1.8 Lymph # (Auto) 1.7 Hamilton # (Auto) 0.4 Eos # (Auto) 0.3 Baso # (Auto) 0.0 Nucleated RBC % (a uto) 0 Nucleated RBCs # 0.0 Sodium 138 Potassium 4.3 Chloride 103 Carbon Dioxide 22 Anion Gap 17.3 BUN 7 Creatinine 0.8 GFR Calculation 108.8 Glucose 106 Calculated Osmolal ity 282 L Calcium 9.3 Total Bilirubin 0.4 AST 131 H ALT 104 H Alkaline Phosphata se 77 Total Protein 7.1 Albumin 4.1 Globulin 3.0 Thyroxine (T4) HIV 1&2 Ab & HIV 1 Ag Non-reactive HIV 1&2 Antibody Non-reactive 11/19/19 19:59 WBC RBC Hgb Hct MCV MCH MCHC RDW Plt Count MPV Neut % (Auto) Lymph % (Auto) Hamilton % (Auto) Eos % (Auto) Baso % (Auto) Neut # (Auto) Lymph # (Auto) Hamilton # (Auto) Eos # (Auto) Baso # (Auto) Nucleated RBC % (a uto) Nucleated RBCs # Sodium Potassium Chloride Carbon Dioxide Anion Gap BUN Creatinine GFR Calculation Glucose Calculated Osmolal ity Calcium Total Bilirubin AST ALT Alkaline Phosphata se Total Protein Albumin Globulin Thyroxine (T4) 5.2 HIV 1&2 Ab & HIV 1 Ag HIV 1&2 Antibody Vitals: Last Vital Signs Temp 98.6 F 11/21/19 07:55 Pulse 64 11/21/19 07:55 Resp 18 11/21/19 07:55 BP 124/80 11/21/19 07:55 Pulse Ox 96 11/21/19 07:55 Discharge Plan Discharge Patient Disposition: Home, Self-Care Condition: Stable Prescriptions: New thiamine mononitrate (vit B1) [Vitamin B-1 (mononitrate)] 100 mg Tablet 100 mg PO DAILY Qty: 30 RF: 0 Thera 400 mcg Tablet 1 tab PO DAILY Qty: 30 RF: 0 No Action No Known Home Medications RF: 0 Discharge Diet: Advance as tolerated Discharge Activity: Increase activity as tolerated Activity Restrictions/Additional Instructions: Please refer to primary care provider, to set him up for routine care. Please refer to behavioral health clinic for anxiety, history of heroin addiction, alcohol addiction No tobacco, alcohol Discharge Attestations Time Spent in Discharge Care*: greater than 30 min Quality Metrics Clinical Quality Measures During this hospital stay, did patient experience: None Coding Level of Care Code Acute Bottom Sander for Rishi Daniel Diagnoses Alcohol withdrawal syndrome F10.232 Complication of substance-induced condition: with perceptual disturbance Alcoholism F10.20 Syncope R55
[2019-11-21 10:27] VITALS: PULSE 84; RESP 18; O2SAT 98
[2019-11-21 10:39] VITALS: BP 124/80; PULSE 84; RESP 18; TEMP 37; O2SAT 98
[2019-11-21 11:17] VITALS: BP 114/70; PULSE 71; RESP 16; TEMP 37; O2SAT 96
== END 2019-11-21 11:26 | disposition home or self-care (01) | DRG 897 ==
LOC: ER 19:59 → ICU 20:07 → MEDSURG 11-20 12:17
PROVIDERS: Admitting Provider Internal Medicine; Emergency Provider Emergency Medicine; Visit Provider Internal Medicine
DX: F10.232 Alcohol dependence with withdrawal with perceptual disturbance (principal); E87.2 Acidosis; N17.9 Acute kidney failure, unspecified; F17.210 Nicotine dependence, cigarettes, uncomplicated; I10 Essential (primary) hypertension; E87.6 Hypokalemia; E02 Subclinical iodine-deficiency hypothyroidism; E86.0 Dehydration; F11.10 Opioid abuse, uncomplicated
CPT/HCPCS: 12345; 36415; 70450; 71045; 72125; 80053; 80306; 80307; 81001; 82550; 83605; 83735; 84436; 84439; 84443; 84484; 85025; 85610; 86803; 87340; 87806; 93005; 94640; 94760; 96372; 96374; 96375; 99283; J1644; J2060; J2405; J3411; J3490; J7030

== ENCOUNTER 2019-11-29 21:48 | Inpatient (IN) | payer SELFPAY ==
[2019-11-29 21:49] VITALS: BP 138/98; PULSE 94; RESP 18; O2SAT 95
--- NOTE | 2019-11-29 21:49 | XR_ITS ---
WS: [id number] PORTABLE CHEST HISTORY: cough COMPARISON: 11/20/2019 Endotracheal tube is been placed and ends 2 to 3 cm above the brad in good position. Linear areas of atelectasis adjacent to the medial RIGHT upper lobe. Atelectasis posterior to the RIG HT heart. LEFT lung is clear. No pleural effusion or pneumothorax. Cardiac size: Normal. Mediastinum/Aorta: Normal mediastinum. No osseous abnormality seen. XR/XR chest 1V portable [id number] IMPRESSION: 1. Endotracheal tube in good position. 2. Partial atelectasis medial RIGHT upper lobe and medial RIGHT lower lobe.
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
[2019-11-29 21:58] LABS: Basophils # 0.2 10^3/uL (0.0-0.1); Eosinophils # 0.4 10^3/uL (0.0-0.8); Eosinophils % 4.9 %; Hematocrit 48.2 % (42.0-52.0); Hemoglobin 15.8 g/dL (11.7-16.6); Lymphocytes # 3.8 10^3/uL (0.8-4.8); Lymphocytes % 49.6 %; Mean Corpuscular HGB Conc 32.8 g/dL (30.0-36.0); Mean Corpuscular Hemoglobin 30.6 pg (28.0-34.0); Mean Corpuscular Volume 93.2 fL (80-94); Mean Platelet Volume 8.6 fL (7.4-10.4); Monocytes % 12.7 %; Neutrophils # 2.3 10^3/uL (1.8-7.7); Nucleated Red Blood Cells % 0 %; Platelet Count 307 10^3/cmm (130-400); Red Blood Count 5.17 10^6/uL (4.1-5.3); Red Cell Distribution Width 12.5 % (12.1-15.1); White Blood Count 7.6 10^3/uL (4.0-10.0)
[2019-11-29] MEDS: propofol 1,000 MG/100 ML INJ 6.3 MG (22:10)
[2019-11-29 22:14] LABS: Alanine Aminotransferase 79 U/L (0-41); Albumin Level 2.7 g/dL (3.5-5.2); Alkaline Phosphatase 43 IU/L (40-130); Anion Gap 12.3 (5-19); Aspartate Amino Transferase 120 U/L (0-40); Blood Urea Nitrogen 3 mg/dL (6-20); Carbon Dioxide 18 mmol/L (22-29); Chloride 120 mmol/L (98-107); Globulin 1.3 g/dL (1.3-4.6); Glomerular Filtration Rate 187.1 mL/min (90-130); Glucose 74 mg/dL (65-115); Lipase 48 U/L (13-60); Magnesium 1.3 mg/dL (1.7-2.3); Osmolality Calculated 300 mOsm/kg (285-295); Sodium 148 mmol/L (136-145); Total Bilirubin 0.2 mg/dL (0.15-1.2)
[2019-11-29 22:18] LABS: Alcohol Level 316 mg/dL (0-10); Calcium 5.2 mg/dL (8.5-10.5); Potassium 2.3 mmol/L (3.5-5.1)
[2019-11-29 22:48] LABS: INR 0.95 (0.8-1.2); Partial Thromboplastin Time 25.6 SECONDS (23.9-36.7)
[2019-11-29] MEDS: sodium chloride 0.9% 1,000 ML 100 ML IV (22:50)
[2019-11-29] MEDS: vecuronium 10 mg SDV IVP (22:57)
[2019-11-29] MEDS: succinylcholine 20 mg/mL SDV 10mL 150 MG IVP (22:57)
[2019-11-29 23:00] VITALS: RESP 14
[2019-11-29] MEDS: LORazepam 2 mg/mL INJ 1 mL IVP (23:00)
[2019-11-30] VITALS (22 sets, daily range): BP systolic 91–130; BP diastolic 56–99; PULSE 90–108; RESP 0–21; TEMP 36.5–36.9; O2SAT 93–98
[2019-11-30 00:11] LABS: ABG PCO2 50.7 mmHg (35-45); ABG PH Result 7.33 (7.35-7.45); Base Excess ABG -0.1 mmol/L (-2.0-2.0); HCO3 ABG 26.8 mmol/L (22-26)
[2019-11-30 00:12] LABS: Oxygen Device VENT
[2019-11-30 00:13] LABS: Arterial Blood Gas Hematocrit 51.7 % (42-52); Blood Gas Sample Type ARTERIAL
--- NOTE | 2019-11-30 00:27 | PC.NURSE ---
Suctioned excess saliva out of patient's mouth
[2019-11-30 00:30] LABS: Bacteria Urine TRACE; Bilirubin Urine Neg (NEGATIVE); Blood Urine Neg (Negative); Glucose Urine UA Norm (Normal); Ketones Urine Negative (Negative); Leukocyte Esterase Urine Negative (Negative); Nitrate Urine Negative (Negative); Protein Urine Neg (Negative); RBC Urine RARE /hpf (0-2); Squamous Epithelial Cell Urine RARE (0-5); Urine Appearance Clear (CLEAR); Urine Color Yellow (Yellow); Urobilinogen Urine Norm (Negative); WBC Urine RARE /hpf (0-5); pH Urine 6 (5-7)
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
[2019-11-30] MEDS: magnesium sulfate premix 2 GM/50 ML PIGGYBACK IV (01:02)
[2019-11-30 01:22] LABS: Troponin 5 2HR 12.81 ng/mL (0-15)
[2019-11-30 01:47] LABS: Troponin(5th) Baseline 6 ng/mL (0-15)
[2019-11-30 01:48] LABS: Troponin 5 2HR Delta 6.81 ABS# (0-10)
--- NOTE | 2019-11-30 01:51 | CTR_ITS ---
PROCEDURE INFORMATION: Exam: CT Maxillofacial Without Contrast Exam date and time: 11/30/2019 1:52 AM Age: 39 years old Clinical indication: Injury or trauma; Fall; Initial encounter; Blunt trauma (contusions or hematomas); Forehead; Patient HX: PT intubated TECHNIQUE: Imaging protocol: Computed tomography images of the face without contrast. Total DLP: 856.14 mGy-cm Radiation optimization: All CT scans at this facility use at least one of these dose optimization techniques: automated exposure control; mA and/or kV adjustment per patient size (includes targeted exams where dose is matched to clinical indication); or iterative reconstruction. COMPARISON: No relevant prior studies available. FINDINGS: Orbits: Orbital contents appear intact/unremarkable. Bones/joints: No definite evidence of acute facial bone fracture. Sinuses: Moderate mucosal thickening/opacity in the ethmoid sinuses. Mild mucosal thickening in the maxillary, sphenoid, and right frontal sinuses. Other findings: The patient is intubated. CT/CT facial bones wo con* [id number] IMPRESSION: 1. No definite acute facial bone/orbital fracture by CT. 2. Paranasal sinus findings as discussed above. 3. Other findings discussed above. Radiation Dose CTDIVOL = (mGy): DLP = 856.14 (mGy-cm)
--- NOTE | 2019-11-30 01:51 | CTR_ITS ---
PROCEDURE INFORMATION: Exam: CT Chest Without Contrast Exam date and time: 11/30/2019 1:52 AM Age: 39 years old Clinical indication: Injury or trauma; Fall; Initial encounter; Blunt trauma (contusions or hematomas); Patient HX: PT intubated TECHNIQUE: Imaging protocol: Computed tomography of the chest without contrast. Total DLP: 752.59 mGy-cm Radiation optimization: All CT scans at this facility use at least one of these dose optimization techniques: automated exposure control; mA and/or kV adjustment per patient size (includes targeted exams where dose is matched to clinical indication); or iterative reconstruction. COMPARISON: CR XR chest 1V portable [id number] 11/29/2019 10:51 PM FINDINGS: Tubes, catheters and devices: An endotracheal tube is placed with its tip approximately 2.4 cm from the brda. Lungs: Strandy opacities are seen in the lung apices bilaterally compatible with some parenchymal and pleural scarring. There is right lower lobe volume loss and consolidation likely representing a right lower lobe collapse. Pleural space: Unremarkable. No pneumothorax. No pleural effusion. Heart: Unremarkable. No cardiomegaly. No pericardial effusion. Aorta: Unremarkable. No aortic aneurysm. Lymph nodes: Unremarkable. No enlarged lymph nodes. Bones/joints: Unremarkable. No acute fracture. Soft tissues: Unremarkable. CT/CT chest [facility] [id number] IMPRESSION: 1. Probable right lower lobe atelectasis and collapse . 2. Endotracheal tube tip approximately 2.4 cm from the brad. Radiation Dose CTDIVOL = (mGy): DLP = 752.59 (mGy-cm)
[2019-11-30] MEDS: potassium chloride premix 40 MEQ/100 ML PREMIX 25 MEQ IV ×2 (02:06→05:38)
[2019-11-30 02:36] LABS: Lactic Acid level (Lactate) 2.7 mmol/L (0.5-2.2); Lactic Sepsis W/Reflex 2.7 mmol/L (0.5-2.2)
[2019-11-30 02:41] LABS: Amphetamines Screen Urine Negative (Negative); Barbiturates Screen Urine Negative (Negative); Benzodiazepines Screen Urine Negative (Negative); Cocaine Screen Urine Negative (Negative); Opiate Screen Urine Negative (Negative); PCP Screen Urine Negative (Negative); THC Screen Urine Negative (Negative)
--- NOTE | 2019-11-30 02:50 | US_ITS ---
WS: [id number] RIGHT UPPER QUADRANT ULTRASOUND HISTORY: transaminitis COMPARISON: None available. Liver: 16.0 cm in length. Normal size liver with focal areas of hepatic steatosis. No diffuse hepatic steatosis. No bile duct dilatation. Gallbladder: There is mild diffuse gallbladder wall thickening. No stones are identified. Gallbladder wall measures just greater than 3 mm. CBD: 0.4 cm Pancreas: Normal size and echogenicity. Right kidney: 9.8 cm in length. Normal echogenicity with no mass or hydronephrosis. Aorta and IVC: Unremarkable. No ascites. US/US liver [id number] IMPRESSION: 1. No cholelithiasis. 2. Mild diffuse gallbladder wall thickening and mild hepatic steatosis. Change s in the gallbladder may be related to hepatocellular disease or mild contracti on. 3. No bile duct dilatation.
[2019-11-30 02:54] LABS: Calcium 8.6 mg/dL (8.5-10.5)
[2019-11-30 03:06] LABS: Procalcitonin 0.06 ng/mL (0-0.5); Thyroid Stimulating Hormone 4.26 uIU/mL (0.27-4.20)
[2019-11-30] MEDS: propofol 10 mg/mL SDV 20 mL 60 MG IVP (03:07)
[2019-11-30 03:12] LABS: 25 Hydroxy Vitamin D 10 ng/mL (30-100)
[2019-11-30] MEDS: piperacillin-tazobactam 3.375 GM in sodium chloride 0.9% (plus) 50 ML IV ×3 (04:03→19:50)
[2019-11-30 04:08] LABS: Reflex Lactate Order REFLEX LACTIC ORDERD
[2019-11-30] MEDS: enoxaparin 40 mg/0.4 mL Syringe SUBCUT (04:08)
[2019-11-30] MEDS: folic acid 1 MG, multivitamin inj 10 ML, thiamine 100 MG in sodium chloride 0.9% 1,000 ML 252.8 MG IV (04:11)
--- NOTE | 2019-11-30 04:29 | ECG_ITS ---
Measurements Intervals [place] Rate: 105 P: 65 MD: 152 QRS: 78 QRSD: 92 T: 75 QT: 334 QTc: 443 SINUS TACHYCARDIA ABNORMAL RHYTHM ECG Compared to ECG 11/20/2019 00:10:46 Sinus rhythm no longer present Electronically Signed On 11-30-2019 18:26:42 CDT by Maureen Gagnon M.D. [id number]
--- NOTE | 2019-11-30 04:40 | NUR.SHIFT ---
Pt arrived on unit from ER at 0400. Pt intubated on arrival to unit with propofol, potassium rider, and fluids hanging on arrival to unit. Size 8 tube position 26 at lip. Bilateral breath sounds diminished throughout. RT at bedside and transferred from ambu-bag to ventilator . CMV mode, FIO2 45%, volume 500, Peep 5, Rate 14. Pt arouses with stimulation of transfer, pulling at tubes/wires. Sedation titrated. Soft wrist restraints applied per orders. Unable to complete admission, medications reconciliation, Flu/pneumonia vaccination due to intubation.
[2019-11-30] MEDS: propofol 1,000 MG/100 ML INJ 18.4 MG IV (04:46)
[2019-11-30 04:47] LABS: Parathyroid Hormone 65.3 pg/mL (15-65)
[2019-11-30 05:28] LABS: Alanine Aminotransferase 122 U/L (0-41); Albumin Level 3.8 g/dL (3.5-5.2); Alkaline Phosphatase 63 IU/L (40-130); Anion Gap 16.1 (5-19); Aspartate Amino Transferase 198 U/L (0-40); Blood Urea Nitrogen 5 mg/dL (6-20); Calcium 7.9 mg/dL (8.5-10.5); Carbon Dioxide 24 mmol/L (22-29); Chloride 110 mmol/L (98-107); Creatinine Clr Calc Pharmacy 108.5537; Globulin 2.3 g/dL (1.3-4.6); Glucose 119 mg/dL (65-115); Magnesium 2.4 mg/dL (1.7-2.3); Osmolality Calculated 299 mOsm/kg (285-295); Phosphorus 2.2 mg/dL (2.5-4.5); Potassium 4.1 mmol/L (3.5-5.1); Sodium 146 mmol/L (136-145); Total Bilirubin 0.2 mg/dL (0.15-1.2); Total Protein 6.1 g/dL (6.6-8.7)
[2019-11-30 05:30] LABS: Lactic Acid level (Lactate) 2.4 mmol/L (0.5-2.2)
[2019-11-30 05:32] LABS: ABG PCO2 46.4 mmHg (35-45); ABG PH Result 7.36 (7.35-7.45); Blood Gas Sample Site Brachial, right; Blood Gas Sample Type Arterial; Blood Gas Tidal Volume 0.5; Oxygen Device VENT
[2019-11-30 05:33] LABS: Troponin 5 6HR 31.82 ng/mL (0-15)
[2019-11-30 05:35] LABS: Troponin 5 6HR Delta 25.82 ng/L (0-12)
[2019-11-30 08:23] LABS: Lipase 59 U/L (13-60)
[2019-11-30] MEDS: propofol 1,000 MG/100 ML INJ 14.7 MG IV (09:17)
--- NOTE | 2019-11-30 12:15 | PM.PN ---
Subjective Subjective: Interval history: Dl is sedated on the ventilator. History and physical reviewed in detail. Medications: Reviewed: Yes Vitals/I&O/Wt Last Vital Signs Temp 97.8 F 11/30/19 06:00 Pulse 102 H 11/30/19 08:00 Resp 15 11/30/19 11:01 BP 119/99 11/30/19 08:00 Pulse Ox 98 11/30/19 08:00 11/29/19 11/30/19 11/30/19 22:59 06:59 14:59 Intake Total 122.865 / 562.518 9036.855 / 2114.855 Output Total 425 / 425 Balance -302.135 / -903.860 7191.855 / 2114.855 Weight last 48 hrs Weight 61.235 kg Physical Exam Narrative: EXAM NARRATIVE: Sedated on the ventilator Cardiovascular regular rate and rhythm without murmur Lungs clear Abdomen is soft with positive bowel sounds Extremities no cyanosis clubbing or edema Neurologic: Moves all 4 extremities spontaneously Data : 11/29/19 21:51 11/30/19 04:20 A&P Assessment and plan (1) Acute alcohol intoxication: Due to concerns for combativeness, neck injury, protecting his airway, acute alcohol intoxication, blood alcohol level 316 patient was intubated Lessen sedation today, see if patient can be cooperative for possible extubation Currently requiring minimal ventilator settings, ABG acceptable. May be able to, ventilator today if not combative Add Precedex secondary to history of alcohol withdrawal in the past, wean down fentanyl and propofol Continue Protonix for GI prophylaxis Continue thiamine, folate, CIWA protocol when extubated Continue hydration Status: Acute (2) Trauma: Multiple CTs performed and no evidence of fracture. Scalp contusion noted. Status: Acute (3) Acute hypokalemia: Supplemented Status: Acute (4) Hypomagnesemia: Supplemented Status: Acute (5) Hypocalcemia: Improved after supplementation Status: Acute Additional A&P Information Possible aspiration pneumonitis. Placed on Zosyn. Noted right lower lobe, atelectasis on CT scan. Hypernatremia, improving Increase troponin. No evidence of myocardial infarction on EKG. Likely type II. Lovenox for DVT prophylaxis Full code Attestations Medical Necessity Statement*: Needs continued hospitalization for treatment of alcohol intoxication, aspiration pneumonitis requiring endotracheal intubation. Critical Care Time: 33 minutes spent in critical care reviewing ventilator settings, evaluating patient, reviewing records, etc. in this ill patient requiring ventilator support, aspiration pneumonitis, alcohol intoxication. Coding Level of Care Code Acute Loader Operator for g Fwd Diagnoses Acute alcohol intoxication F10.929 Trauma T14.90XA Acute hypokalemia E87.6 Hypomagnesemia E83.42 Hypocalcemia E83.51
[2019-11-30] MEDS: sodium chloride 0.9% 1,000 ML 125 ML IV (15:45)
[2019-11-30] MEDS: pantoprazole 40 mg SDV IVP (15:45)
[2019-11-30] MEDS: LORazepam 2 mg Tablet PO (19:49)
--- NOTE | 2019-11-30 19:58 | PC.NURSE ---
Addendum entered by Alesha Bah RN 11/30/19 20:00: Witness fentanyl waste with JEAN PAUL Wyman. -Janine Bah RN. Original Note: 52 ml of fentanyl drip wasted with Alesha Bah RN.
--- NOTE | 2019-11-30 20:16 | PC.NURSE ---
Warren catheter that was placed in ER 16 removed at this time per nurse driven protocol. 10ml saline removed from bulb, pt tolerated well.
[2019-12-01] VITALS (11 sets, daily range): BP systolic 135–155; BP diastolic 74–99; PULSE 82–97; RESP 16–20; TEMP 37–37.3; O2SAT 92–97
[2019-12-01] MEDS: acetaminophen 325 mg Tablet 650 MG PO ×2 (01:20→21:01)
[2019-12-01] MEDS: sodium chloride 0.9% 1,000 ML 125 ML IV (01:21)
[2019-12-01] MEDS: piperacillin-tazobactam 3.375 GM in sodium chloride 0.9% (plus) 50 ML IV ×3 (04:20→19:43)
[2019-12-01] MEDS: enoxaparin 40 mg/0.4 mL Syringe SUBCUT (04:21)
[2019-12-01 05:20] LABS: Basophils # 0.1 10^3/uL (0.0-0.1); Basophils % 0.7 %; Eosinophils # 0.3 10^3/uL (0.0-0.8); Eosinophils % 2.8 %; Hematocrit 42.7 % (42.0-52.0); Hemoglobin 14.4 g/dL (11.7-16.6); Lymphocytes # 1.5 10^3/uL (0.8-4.8); Lymphocytes % 15.2 %; Mean Corpuscular HGB Conc 33.7 g/dL (30.0-36.0); Mean Corpuscular Hemoglobin 31.4 pg (28.0-34.0); Mean Corpuscular Volume 93.2 fL (80-94); Mean Platelet Volume 8.7 fL (7.4-10.4); Monocytes # 0.7 10^3/uL (0.2-0.9); Neutrophils # 7.3 10^3/uL (1.8-7.7); Neutrophils % 73.9 %; Nucleated Red Blood Cells % 0 %; Platelet Count 258 10^3/cmm (130-400); Red Blood Count 4.58 10^6/uL (4.1-5.3); Red Cell Distribution Width 12.3 % (12.1-15.1); White Blood Count 9.8 10^3/uL (4.0-10.0)
[2019-12-01 05:40] LABS: Alanine Aminotransferase 91 U/L (0-41); Albumin Level 3.6 g/dL (3.5-5.2); Alkaline Phosphatase 61 IU/L (40-130); Anion Gap 14.8 (5-19); Aspartate Amino Transferase 95 U/L (0-40); Blood Urea Nitrogen 6 mg/dL (6-20); Calcium 8.1 mg/dL (8.5-10.5); Carbon Dioxide 25 mmol/L (22-29); Chloride 104 mmol/L (98-107); Globulin 2.5 g/dL (1.3-4.6); Glomerular Filtration Rate 108.8 mL/min (90-130); Glucose 98 mg/dL (65-115); Magnesium 1.7 mg/dL (1.7-2.3); Osmolality Calculated 286 mOsm/kg (285-295); Phosphorus 2.5 mg/dL (2.5-4.5); Potassium 3.8 mmol/L (3.5-5.1); Sodium 140 mmol/L (136-145); Total Bilirubin 0.4 mg/dL (0.15-1.2); Total Protein 6.1 g/dL (6.6-8.7)
--- NOTE | 2019-12-01 07:00 | XRR_ITS ---
PROCEDURE INFORMATION: Exam: XR Chest, 1 View Exam date and time: 12/01/2019 4:41 AM Age: 39 years old Clinical indication: Condition or disease; Lung condition and disease; Atelectasis; Additional info: Follow-up atelectasis TECHNIQUE: Imaging protocol: XR of the chest Views: 1 view. COMPARISON: CR XR chest 1V portable [id number] 11/29/2019 10:51 PM FINDINGS: Tubes, catheters and devices: ET tube has been removed in the interval. Lungs: No CHF/pulmonary edema. Newly visible moderate area of apparent parenchymal opacity in the right lateral mid lung, suspicious for pneumonia. Atelectasis is felt much less likely. Parenchymal opacities in the medial right lung base could represent atelectasis or pneumonia. Visible lungs otherwise appear essentially clear. Pleural space: No visible pneumothorax. No definite pleural fluid. Heart/Mediastinum: Heart size is within normal limits. Bones/joints: No significant acute finding. XR/XR chest 1V portable [id number] IMPRESSION: 1. New right lung opacity suspicious for pneumonia, details above. 2. Parenchymal opacities in the medial right lung base could represent atelectasis or pneumonia. 3. Other findings discussed above.
[2019-12-01] MEDS: multivitamin therapeutic Tablet 1 TAB PO (08:47)
[2019-12-01] MEDS: folic acid 1 mg Tablet PO (08:47)
[2019-12-01] MEDS: thiamine 100 mg Tablet PO (08:47)
[2019-12-01] MEDS: pantoprazole 40 mg SDV IVP (08:47)
--- NOTE | 2019-12-01 11:41 | PM.PN ---
Subjective Subjective: Interval history: Dl reports he is doing okay. Some cough. Medications: Reviewed: Yes Vitals/I&O/Wt Last Vital Signs Temp 98.6 F 12/01/19 09:39 Pulse 90 12/01/19 09:39 Resp 20 H 12/01/19 09:39 BP 148/92 12/01/19 09:39 Pulse Ox 96 12/01/19 09:39 11/30/19 12/01/19 12/01/19 22:59 06:59 14:59 Intake Total 1850 / 4073.923 2050 / 6123.923 1055 / 1055 Output Total 1300 / 1725 800 / 2525 400 / 400 Balance 550 / 2348.923 1250 / 3598.923 655 / 655 Weight last 48 hrs Weight 61.235 kg Physical Exam Narrative: EXAM NARRATIVE: Sedated on the ventilator Cardiovascular regular rate and rhythm without murmur Lungs coarse breath sounds right greater than left Abdomen is soft with positive bowel sounds Extremities no cyanosis clubbing or edema Neurologic: Moves all 4 extremities spontaneously Data : 12/01/19 04:45 12/01/19 04:45 A&P Assessment and plan (1) Acute alcohol intoxication: Due to concerns for combativeness, neck injury, protecting his airway, acute alcohol intoxication, blood alcohol level 316 patient was intubated. He was extubated yesterday without difficulty. Continue thiamine, folate, CIWA protocol Status: Acute (2) Trauma: Multiple CTs performed and no evidence of fracture. Scalp contusion noted. Status: Acute (3) Acute hypokalemia: Supplemented and resolved Status: Acute (4) Hypomagnesemia: Supplemented and resolved Status: Acute (5) Hypocalcemia: Improved after supplementation Status: Acute Additional A&P Information Possible aspiration pneumonitis. Placed on Zosyn. Noted right lower lobe, atelectasis on CT scan. Chest x-ray today demonstrates right-sided infiltrate. Continue Zosyn. Continue to encourage incentive spirometry. Ambulate. Repeat chest x-ray tomorrow. Hypernatremia, resolved Increase troponin. No evidence of myocardial infarction on EKG. Likely type II. Lovenox for DVT prophylaxis Full code Potential discharge tomorrow if continues to improve. Attestations Medical Necessity Statement*: Needs continued hospitalization for IV antibiotics secondary to aspiration pneumonitis. Coding Level of Care Code Acute Sales Recruiting Coordinator for Chg Fwd Diagnoses Acute alcohol intoxication F10.929 Trauma T14.90XA Acute hypokalemia E87.6 Hypomagnesemia E83.42 Hypocalcemia E83.51
[2019-12-02] VITALS: BP 156/71; PULSE 82; RESP 20; TEMP 37.3; O2SAT 96
[2019-12-02] MEDS: piperacillin-tazobactam 3.375 GM in sodium chloride 0.9% (plus) 50 ML IV (03:12)
[2019-12-02] MEDS: enoxaparin 40 mg/0.4 mL Syringe SUBCUT (03:14)
[2019-12-02 04:00] VITALS: BP 152/68; PULSE 84; RESP 19; TEMP 37.4; O2SAT 95
[2019-12-02 05:52] LABS: Basophils % 0.5 %; Eosinophils # 0.3 10^3/uL (0.0-0.8); Eosinophils % 4.8 %; Hematocrit 39.9 % (42.0-52.0); Hemoglobin 13.6 g/dL (11.7-16.6); Lymphocytes # 1.1 10^3/uL (0.8-4.8); Lymphocytes % 17.8 %; Mean Corpuscular HGB Conc 34.1 g/dL (30.0-36.0); Mean Corpuscular Hemoglobin 31.3 pg (28.0-34.0); Mean Corpuscular Volume 91.7 fL (80-94); Monocytes # 0.4 10^3/uL (0.2-0.9); Monocytes % 6.2 %; Neutrophils # 4.2 10^3/uL (1.8-7.7); Neutrophils % 70.4 %; Nucleated Red Blood Cells % 0 %; Platelet Count 244 10^3/cmm (130-400); Red Blood Count 4.35 10^6/uL (4.1-5.3); Red Cell Distribution Width 12.3 % (12.1-15.1)
[2019-12-02 06:15] LABS: Alanine Aminotransferase 76 U/L (0-41); Albumin Level 3.4 g/dL (3.5-5.2); Alkaline Phosphatase 64 IU/L (40-130); Anion Gap 14.6 (5-19); Aspartate Amino Transferase 68 U/L (0-40); Blood Urea Nitrogen 5 mg/dL (6-20); Calcium 8.9 mg/dL (8.5-10.5); Carbon Dioxide 25 mmol/L (22-29); Chloride 104 mmol/L (98-107); Globulin 2.9 g/dL (1.3-4.6); Glomerular Filtration Rate 108.8 mL/min (90-130); Glucose 107 mg/dL (65-115); Osmolality Calculated 286 mOsm/kg (285-295); Phosphorus 3.2 mg/dL (2.5-4.5); Potassium 3.6 mmol/L (3.5-5.1); Sodium 140 mmol/L (136-145); Total Bilirubin 0.5 mg/dL (0.15-1.2); Total Protein 6.3 g/dL (6.6-8.7)
[2019-12-02 07:44] VITALS: BP 138/92; PULSE 81; RESP 20; TEMP 37.2; O2SAT 97
--- NOTE | 2019-12-02 07:44 | XRR_ITS ---
PROCEDURE INFORMATION: Exam: XR Chest, 1 View Exam date and time: 12/02/2019 12:00 AM Age: 39 years old Clinical indication: Shortness of breath; Additional info: Follow-up pneumonia TECHNIQUE: Imaging protocol: XR of the chest Views: 1 view. COMPARISON: CR XR chest 1V portable [id number] 12/01/2019 4:29 AM FINDINGS: Lungs: Emphysematous change and mild interstitial prominence. Interval improvement in airspace disease overlying the lateral right mid lung field. Pleural space: Small right pleural effusion. Heart/Mediastinum: No cardiomegaly. Bones/joints: Unremarkable. XR/XR chest 1V portable [id number] IMPRESSION: Emphysematous change and mild interstitial prominence. Interval improvement in airspace disease overlying the lateral right mid lung field.
[2019-12-02] MEDS: multivitamin therapeutic Tablet 1 TAB PO (08:21)
[2019-12-02] MEDS: pantoprazole 40 mg SDV IVP (08:21)
[2019-12-02] MEDS: folic acid 1 mg Tablet PO (08:21)
[2019-12-02] MEDS: thiamine 100 mg Tablet PO (08:21)
--- NOTE | 2019-12-02 09:43 | P.DS_ITS ---
Discharge Providers Date of Admission: 11/30/19 01:00 Date of Discharge: December 02, 2019 Attending Provider at Admission: Andrea Flaherty MD Attending Provider at Discharge: Jaspreet Tomas MD Diagnoses at Discharge Discharge Diagnosis (1) Acute alcohol intoxication: Status: Acute Problem details: Resolved (2) Trauma: Status: Acute Problem details: No fractures noted (3) Acute hypokalemia: Status: Acute (4) Hypomagnesemia: Status: Acute (5) Hypocalcemia: Status: Acute Reason for Visit Reason for Visit: Reason For Visit: UNRESPONSIVE/ ETOH Hospital Course Hospital Course: Dl is a 39-year-old white male who presented to the hospital with alcohol intoxication, was combative, had history of trauma. He was intubated for airway protection, and transition to the ICU. Imaging demonstrated no obvious fractures from trauma. He did have right lower lobe atelectasis, and likely aspiration for which he was placed on Zosyn. He was promptly extubated the afternoon of November 29. After extubation he reported no homicidal or suicidal ideation. We discussed in depth regarding potential inpatient or outpatient treatment for alcohol. He reported that this is something that he will take care of on his own. He denied any severe depression. The rest of his hospital stay was spent in close monitoring secondary to the right lung infiltrate suspected to be aspiration and atelectasis of the right lower lobe. Following his extubation he had some cough but did not require oxygen. He did not run any fever. He was able to ambulate. It was thought he could be discharged home on Augmentin, Flagyl secondary to likely aspiration and follow-up with primary care provider in 3 to 5 days. He will need a repeat chest x-ray in 2 weeks and if still abnormal consideration of referral to pulmonary. I discussed with him and in depth the risks of alcohol, and chance of and/or disability should he keep drinking. Physical Exam Narrative: EXAM NARRATIVE: General exam no apparent distress Cardiovascular regular in rhythm Lungs clear Abdomen is soft with positive bowel sounds Extremities no cyanosis clubbing or edema Discharge Data Data Completed and Pending: Completed Studies During Hospitalization Category Date Time Status CT cervical spin wo con* [id number] Urge nt Cat Scan 11/29/19 21:[address] chest wo con 7 1250 Urgent Cat Scan 11/30/19 01:[address] facial bones w o con* [id number] Urgen t Cat Scan 11/30/19 01:[address] head wo con* 7 0450 Urgent Cat Scan 11/29/19 21:49 Completed XR chest 1V sobeida ble [id number] Routine Exams 12/01/19 07:00 Completed XR chest 1V sobeida ble [id number] Routine Exams 12/02/19 07:44 Completed XR chest 1V sobeida ble [id number] Stat Exams 11/29/19 21:49 [place] liver [id number] Ro utine Ultrasound 11/30/19 02:50 Completed Pending at discharge Category Date Time Status ABG ONLY [Arteria l Blood Gas W/O Co ox] Routine Lab 11/29/19 23:57 Results Complete Blood Co unt w/Auto AM LABS Lab 12/03/19 04:00 Ordered Labs from last 24 hours 12/02/19 12/02/19 05:07 05:07 WBC 6.0 RBC 4.35 Hgb 13.6 Hct 39.9 L MCV 91.7 MCH 31.3 MCHC 34.1 RDW 12.3 Plt Count 244 MPV 9.0 Neut % (Auto) 70.4 Lymph % (Auto) 17.8 Simpson % (Auto) 6.2 Eos % (Auto) 4.8 Baso % (Auto) 0.5 Neut # (Auto) 4.2 Lymph # (Auto) 1.1 Simpson # (Auto) 0.4 Eos # (Auto) 0.3 Baso # (Auto) 0.0 Nucleated RBC % (a uto) 0 Nucleated RBCs # 0.0 Sodium 140 Potassium 3.6 Chloride 104 Carbon Dioxide 25 Anion Gap 14.6 BUN 5 L Creatinine 0.8 GFR Calculation 108.8 Glucose 107 Calculated Osmolal ity 286 Calcium 8.9 Phosphorus 3.2 Magnesium 2.0 Total Bilirubin 0.5 AST 68 H ALT 76 H Alkaline Phosphata se 64 Total Protein 6.3 L Albumin 3.4 L Globulin 2.9 Vitals: Last Vital Signs Temp 98.9 F 12/02/19 07:44 Pulse 81 12/02/19 07:44 Resp 20 H 12/02/19 07:44 BP 138/92 12/02/19 07:44 Pulse Ox 97 12/02/19 07:44 Discharge Plan Discharge Condition: Stable Prescriptions: New metronidazole [Flagyl] 500 mg tablet 250 mg PO QID Qty: 28 RF: 0 amoxicillin-pot clavulanate [Augmentin] 875-125 mg tablet 1 tab PO BID Qty: 14 RF: 0 No Action Thera 400 mcg Tablet 1 tab PO DAILY Qty: 30 RF: 0 Discharge Diet: Usual diet Discharge Activity: Resume usual activity Activity Restrictions/Additional Instructions: No alcohol Discharge planning to give outpatient resources for alcoholism Establish and follow-up with a primary care provider in 3 to 5 days Primary care provider should arrange for repeat chest x-ray 2 weeks, and if abnormality persists consider pulmonary referral Discharge Attestations Time Spent in Discharge Care*: greater than 30 min Quality Metrics Clinical Quality Measures During this hospital stay, did patient experience: None Coding Level of Care Code Acute Chemical Applicator for Noahg Fwd Diagnoses Acute alcohol intoxication F10.929 Trauma T14.90XA Acute hypokalemia E87.6 Hypomagnesemia E83.42 Hypocalcemia E83.51
[2019-12-02] MEDS: metroNIDAZOLE 500 MG Tablet PO (11:42)
[2019-12-02 12:00] VITALS: BP 137/91; PULSE 72; RESP 20; TEMP 36.9; O2SAT 99
--- NOTE | 2019-12-02 13:50 | PC.NURSE ---
Reviewed patient discharge with him at this time. Patient verbalized understanding to follow up with [facility] on Tuesday for an appointment and to go [place] [facility] [place] and pick out hand his prescriptions. Patient was given to days dose of antibiotics before leaving the hospital. IV's removed intact. Patient is A&Ox3. Respirations even and non-labored on room air.
[2019-12-02 14:14] VITALS: BP 137/91; PULSE 72; RESP 20; TEMP 36.9; O2SAT 99
[2019-12-02 15:35] LABS: Blood Gas Allen Test POS
== END 2019-12-02 13:50 | disposition home or self-care (01) | DRG 896 ==
LOC: ER 11-30 00:59 → ICU 11-30 01:12 → MEDSURG 12-01 09:20
PROVIDERS: Emergency Medicine; Admitting Provider Family Medicine; Emergency Provider Emergency Medicine; Visit Provider Internal Medicine
DX: F10.229 Alcohol dependence with intoxication, unspecified (principal); J69.0 Pneumonitis due to inhalation of food and vomit; E87.0 Hyperosmolality and hypernatremia; F10.239 Alcohol dependence with withdrawal, unspecified; E83.51 Hypocalcemia; E83.42 Hypomagnesemia; E87.6 Hypokalemia; F17.210 Nicotine dependence, cigarettes, uncomplicated; S19.9XXA Unspecified injury of neck, initial encounter; X58.XXXA Exposure to other specified factors, initial encounter; Y90.8 Blood alcohol level of 240 mg/100 ml or more
CPT/HCPCS: 12345; 31500; 36415; 36600; 70450; 70486; 71045; 71250; 72125; 76705; 80053; 80306; 80307; 81001; 82306; 82310; 82330; 82803; 83605; 83690; 83735; 83970; 84100; 84145; 84443; 84484; 85025; 85610; 85730; 93005; 94002; 94003; 94799; 96365; 96367; 96368; 96372; 96374; 96375; 99284; 99291; C9113; J0330; J1650; J2060; J2543; J2704; J3010; J3411; J3475; J3480; J3490; J7030